=== PATIENT | female | born 1985 | race African-American/Black ===

== ENCOUNTER 2022-11-25 08:01 | Emergency (ER) | payer MEDICAID ==
[~2022-11-25] VITALS: Ht 157.5 cm; Wt 110.0 kg
[2022-11-25 08:43] VITALS: BP 124/75; PULSE 98; RESP 20; TEMP 97.5; O2SAT 99
[2022-11-25] MEDS ORDERED: KETOROLAC TROMETH 60MG/2ML VIAL IM ONE (08:45)
[2022-11-25] MEDS ORDERED: IBUP-1456 PO (08:59)
[2022-11-25] MEDS ORDERED: METH-1182 PO (08:59)
== END 2022-11-25 09:07 | disposition home or self-care (01) ==
LOC: ER 08:01
DX: S29.012A Strain of muscle and tendon of back wall of thorax, initial encounter (principal); X58.XXXA Exposure to other specified factors, initial encounter; Y93.89 Activity, other specified; Y92.89 Other specified places as the place of occurrence of the external cause; Y99.8 Other external cause status
CPT/HCPCS: 96372; 99283; J1885